=== PATIENT | female | born 1955 | race American Indian/Alaskan Native ===

== ENCOUNTER 2019-04-12 12:24 | Inpatient (IN) | payer SELFPAY ==
--- NOTE | 2019-04-12 12:34 | Event Note ---
ED Screening Note Date of service: 04/12/19 Time: 12:33 ED Screening Note: Pt complains of generalized abdominal pain and chest pain x 1 week This initial assessment/diagnostic orders/clinical plan/treatment(s) is/are subject to change based on patients health status, clinical progression and re- assessment by fellow clinical providers in the ED. Further treatment and workup at subsequent clinical providers discretion. Patient/guardian urged not to elope from the ED as their condition may be serious if not clinically assessed and managed. Initial orders include: MAIN labs EKG CXR
--- NOTE | 2019-04-12 13:29 | XRay Report ---
CHEST 2 VIEWS INDICATION / CLINICAL INFORMATION: chest pain. COMPARISON: None available. FINDINGS: SUPPORT DEVICES: None. HEART / MEDIASTINUM: No significant abnormality. LUNGS / PLEURA: No significant pulmonary or pleural abnormality. No pneumothorax. ADDITIONAL FINDINGS: Thoracic aorta is tortuous and minimally ectatic. IMPRESSION: 1. No acute findings. Signer Name: Michele Méndez MD Signed: 04/12/2019 1:25 PM Workstation Name: [id number]
[2019-04-12 13:43] LABS: Basophils # (Auto) 0.1 K/mm3 (0.0-0.1); Basophils % (Auto) 0.6 % (0.0-1.8); Hematocrit 45.5 % (30.3-42.9); Hemoglobin 15.6 gm/dl (10.1-14.3); Lymphocytes # (Auto) 1.7 K/mm3 (1.2-5.4); Lymphocytes % (Auto) 16.4 % (13.4-35.0); Mean Corpuscular HGB Conc 34 % (30-34); Mean Corpuscular Volume 86 fl (79-97); Monocytes # (Auto) 0.6 K/mm3 (0.0-0.8); Monocytes % (Auto) 5.8 % (0.0-7.3); Platelet Count 269 K/mm3 (140-440); Red Blood Count 5.27 M/mm3 (3.65-5.03); Red Cell Distribution Width 14.3 % (13.2-15.2)
[2019-04-12] MEDS ORDERED: MORPHINE 4 MG/1 ML INJ IV ONE ×3 (14:02→15:46)
[2019-04-12] MEDS ORDERED: ONDANSETRON 4 MG/2 ML INJ IV ONE (14:03)
[2019-04-12 14:18] LABS: Albumin 4.1 g/dL (3.9-5); Calcium 9.9 mg/dL (8.4-10.2)
[2019-04-12 14:46] LABS: Bacteria,Urine 1+ /HPF (Negative); Bilirubin,Urine NEG (Negative); Blood,Urine MOD (Negative); Color,Urine Yellow (Yellow); Mucus,Urine 2+ /HPF; Protein,Urine <15 mg/dL mg/dL (Negative); Urobilinogen,Urine < 2.0 mg/dL (<2.0)
--- NOTE | 2019-04-12 16:10 | Cat Scan Report ---
CT of the abdomen and pelvis with contrast INDICATION: Left lower quadrant pain x2 days COMPARISON: None FINDINGS: There is minimal basilar atelectasis. There is moderate fatty infiltration of the liver. Th ere is 2 cm, nodular peripherally enhancing lesion in the dome probably a hemangioma. One or 2 small hepatic cysts appear to be present as well. The spleen is unremarkable. Small low density renal lesio ns appear to be cysts. Low density nodularity of the adrenal glands appears benign. Right retrocrural low density is likely dilated lymphatic. There is good enhancement of the pancreatic parenchyma. How ever, there are moderate peripancreatic inflammatory changes involving the body and tail. The head is intact. No peripancreatic fluid collection. No pancreatic ductal dilation. No definite gallbladder o r biliary tree. No ascites or adenopathy. CT of the pelvis shows no evidence of bowel obstruction. Appendix is seen and is normal. Large calcif ied uterine fibroid is present. No pelvic fluid or adenopathy. No diverticulosis or diverticulitis. N o significant skeletal lesion. IMPRESSION: Moderate pancreatitis as described. No definite necrosis is seen. Automated exposure control was utilized to diminish radiation dose. Signer Name: Michele Méndez MD Signed: 04/12/2019 4:05 PM Workstation Name: [id number]
--- NOTE | 2019-04-12 17:52 | Emergency Department Report ---
ED Abdominal Pain HPI - General Chief Complaint: Chest Pain Stated Complaint: ABD/BACK/CHEST PAIN Time Seen by Provider: 04/12/19 12:30 Source: patient Mode of arrival: Ambulatory Limitations: No Limitations - History of Present Illness Initial Comments: Mrs. Champion is a very pleasant 67-year-old female with history of hypertension who presents with epigastric pain left lower quadrant and right lower quadrant pain. Pain began on Sunday. [place] like a stomach ache. Had constipation. She developed nausea and vomiting. SHe was unable to tolerate her blood pressure medicine this morning. No previous episode of pain. She is in relatively good health. She is followed at the urgent clinic in [facility] for her blood pressure medications. Only a social drinker. drinks less than one time per month. She does smoke cigarettes. She retired 6 months ago. She recently took [id number] medication for cold symptoms MD Complaint: abdominal pain -: Gradual Location: LLQ, RLQ, epigastric Severity: severe Severity scale (0 -10): 10 Quality: cramping, aching Consistency: constant Improves With: nothing Worsens With: nothing Associated Symptoms: nausea, vomiting - Related Data Allergies Allergy/AdvReac Type Severity Reaction Status Date / Time No Known Allergies Allergy Unverified 04/12/19 12:31 ED Review of Systems ROS: Stated complaint: ABD/BACK/CHEST PAIN Other details as noted in HPI Comment: All other systems reviewed and negative Constitutional: denies: fever, malaise Gastrointestinal: abdominal pain, nausea, vomiting ED Past Medical Hx - Past Medical History Previous Medical History?: Yes Hx Hypertension: Yes - Surgical History Past Surgical History?: Yes Additional Surgical History: right pinky toe amputated - Family History Family history: hypertension - Social History Smoking Status: Current Every Day Smoker Substance Use Type: None ED Physical Exam - General Limitations: No Limitations General appearance: alert, in no apparent distress, other (appears uncomfortable) - Head Head exam: Present: atraumatic, normocephalic - Eye Eye exam: Present: normal appearance - ENT ENT exam: Present: mucous membranes moist - Neck Neck exam: Present: normal inspection, full ROM - Respiratory Respiratory exam: Present: normal lung sounds bilaterally. Absent: respiratory distress, wheezes, rales, rhonchi - Cardiovascular Cardiovascular Exam: Present: regular rate, normal rhythm. Absent: systolic murmur, diastolic murmur, rubs, gallop - GI/Abdominal GI/Abdominal exam: Present: soft, tenderness (epigastric left lower quadrant tenderness), guarding, normal bowel sounds - Extremities Exam Extremities exam: Present: normal inspection - Neurological Exam Neurological exam: Present: alert, oriented X3 - Psychiatric Psychiatric exam: Present: normal affect, normal mood - Skin Skin exam: Present: warm, dry, intact, normal color. Absent: rash ED Course Vital Signs 04/12/19 04/12/19 04/12/19 12:31 14:30 15:15 Pulse Rate 90 95 H Respiratory 20 16 21 Rate Blood Pressure Blood Pressure 195/115 210/119 [Left] O2 Sat by Pulse 94 94 Oximetry 04/12/19 04/12/19 04/12/19 15:30 16:12 16:28 Pulse Rate 97 H 96 H 81 Respiratory 23 27 H Rate Blood Pressure 198/127 Blood Pressure 193/119 158/96 [Left] O2 Sat by Pulse 94 94 Oximetry 04/12/19 17:37 Pulse Rate 82 Respiratory 13 Rate Blood Pressure Blood Pressure 194/116 [Left] O2 Sat by Pulse 94 Oximetry ED Medical Decision Making - Lab Data Result diagrams: 04/12/19 12:52 04/12/19 12:52 Laboratory Results - last 24 hr 04/12/19 04/12/19 04/12/19 12:52 12:52 14:06 WBC 10.1 RBC 5.27 H Hgb 15.6 H Hct 45.5 H MCV 86 MCH 30 MCHC 34 RDW 14.3 Plt Count 269 Lymph % (Auto) 16.4 [place] % (Auto) 5.8 Eos % (Auto) 0.0 Baso % (Auto) 0.6 Lymph # 1.7 [place] # 0.6 Eos # 0.0 Baso # 0.1 Seg Neutrophils % 77.2 H Seg Neutrophils # 7.8 H Sodium 138 Potassium 4.0 Chloride 98.3 Carbon Dioxide 19 L Anion Gap 25 BUN 15 Creatinine 1.0 Estimated GFR 56 BUN/Creatinine Ratio 15 Glucose 150 H Calcium 9.9 Total Bilirubin 0.30 AST 19 ALT 18 Alkaline Phosphatase 64 Troponin T Total Protein 8.1 Albumin 4.1 Albumin/Globulin Ratio 1.0 Lipase 678 H Urine Color Yellow Urine Turbidity Clear Urine pH 6.0 Ur Specific [place] 1.017 Urine Protein <15 mg/dl Urine Glucose (UA) 50 Urine Ketones Neg Urine Blood Mod Urine Nitrite Neg Urine Bilirubin Neg Urine Urobilinogen < 2.0 Ur Leukocyte Esterase Neg Urine WBC (Auto) 13.0 H Urine RBC (Auto) 20.0 U Epithel Cells (Auto) 5.0 Urine Bacteria (Auto) 1+ Urine Mucus 2+ 04/12/19 16:31 WBC RBC Hgb Hct MCV MCH MCHC RDW Plt Count Lymph % (Auto) [place] % (Auto) Eos % (Auto) Baso % (Auto) Lymph # [place] # Eos # Baso # Seg Neutrophils % Seg Neutrophils # Sodium Potassium Chloride Carbon Dioxide Anion Gap BUN Creatinine Estimated GFR BUN/Creatinine Ratio Glucose Calcium Total Bilirubin AST ALT Alkaline Phosphatase Troponin T < 0.010 Total Protein Albumin Albumin/Globulin Ratio Lipase Urine Color Urine Turbidity Urine pH Ur Specific [place] Urine Protein Urine Glucose (UA) Urine Ketones Urine Blood Urine Nitrite Urine Bilirubin Urine Urobilinogen Ur Leukocyte Esterase Urine WBC (Auto) Urine RBC (Auto) U Epithel Cells (Auto) Urine Bacteria (Auto) Urine Mucus - EKG Data 04/12/19 17:51 EKG obtained 1242 Normal sinus rhythm at 80 beats a minute normal axis normal intervals and nonspecific ST-T wave pattern and no significant ST elevation positive LVH according to aVL criteria - Radiology Data Radiology results: report reviewed CT abdomen and pelvis revealed acute pancreatitis. Large uterine fibroid, hemangioma. Chest x-ray no acute findings: Torturous aorta according to radiologist report - Medical Decision Making 1. Acute pancreatitis: First episode for patient, Admitted to the hospital service for further treatment and evaluation. No history of excessive alcohol abuse. Only reported medication [id number] cold medication as well as lisinopril. Patient reports mild dyslipidemia in the past. 2. Hypertensive urgency: Addressed with IV labetalol. Critical care attestation.: If time is entered above; I have spent that time in minutes in the direct care of this critically ill patient, excluding procedure time. ED Disposition Clinical Impression: Acute pancreatitis, Hypertensive urgency Disposition: OP ADMIT IP TO THIS HOSP Is pt being admited?: Yes Does the pt Need Aspirin: No Condition: Stable
[2019-04-12] MEDS ORDERED: HYDROmorphone 1 MG/1 ML INJ IV ONE (17:54)
[2019-04-12] MEDS ORDERED: ACETAMINOPHEN 325 MG TAB PO PRN (18:19)
[2019-04-12] MEDS ORDERED: MORPHINE 2 MG/1 ML INJ IV PRN (18:19)
[2019-04-12] MEDS ORDERED: METOCLOPRAMIDE 10 MG/2 ML INJ IV PRN (18:19)
--- NOTE | 2019-04-12 18:27 | History and Physical Report ---
History of Present Illness Date of examination: 04/12/19 Date of admission: April 12, 2019 Chief complaint: Epigastric pain for 3 days History of present illness: 67-year-old female with history of hypertension presents with epigastric pain left lower quadrant and right lower quadrant pain. Pain began on Sunday04/07/2019 ---5 days ago.. [place] like a stomach ache. Had constipation. She developed nausea and vomiting. SHe was unable to tolerate her blood pressure medicine this morning. No previous episode of pain. She is in relatively good health. She is followed at the urgent clinic in [facility] for her blood pressure medications. Only a social drinker. drinks less than one time per month. She does smoke cigarettes.She retired 6 months ago. She recently took [id number] medication for cold symptoms MD Complaint: abdominal pain -: Gradual Location: LLQ, RLQ, epigastric Severity: severe Severity scale (0 -10): 10 Quality: cramping, aching Consistency: constant Improves With: nothing Worsens With: nothing Associated Symptoms: nausea, vomiting Past Medical History Previous Medical History?: Yes Hypertension: Yes Surgical History Past Surgical History?: Yes Additional Surgical History: right pinky toe amputated Family History Family history: hypertension Social History Smoking Status: Current Every Day Smoker Substance Use Type: None Review of Systems ROS: Stated complaint: ABD/BACK/CHEST PAIN Other details as noted in HPI Comment: All other systems reviewed and negative Constitutional: denies: fever, malaise Gastrointestinal: abdominal pain, nausea, vomiting Medications and Allergies Allergies Allergy/AdvReac Type Severity Reaction Status Date / Time No Known Allergies Allergy Unverified 04/12/19 12:31 Home Medications Medication Instructions Recorded Confirmed Last Taken Type Lisinopril 40 mg PO DAILY 04/13/19 04/13/19 04/10/19 History Active Meds: Active Medications Acetaminophen (Tylenol) 650 mg PO Q4H PRN PRN Reason: Pain MILD(1-3)/Fever >100.5/CRUZ Hydromorphone HCl (Dilaudid) 1 mg IV Q3H PRN PRN Reason: Pain , Severe (7-10) Dextrose/Sodium Chloride (D5ns) 1,000 mls @ 100 mls/hr IV DIRECT ADAMARIS Metoclopramide HCl (Reglan) 10 mg IV Q6H PRN PRN Reason: Nausea And Vomiting Morphine Sulfate (Morphine) 2 mg IV Q4H PRN PRN Reason: Pain, Moderate (4-6) Ondansetron HCl (Zofran) 4 mg IV Q3H PRN PRN Reason: Nausea And Vomiting Sodium Chloride (Sodium Chloride Flush Syringe 10 Ml) 10 ml IV BID ADAMARIS Sodium Chloride (Sodium Chloride Flush Syringe 10 Ml) 10 ml IV PRN PRN PRN Reason: LINE FLUSH Exam - Constitutional Vitals: Temp Pulse Resp BP Pulse Ox 80 13 189/118 94 04/12/19 18:03 04/12/19 17:37 04/12/19 18:03 04/12/19 17:37 General appearance: Present: no acute distress, well-nourished - EENT Eyes: Present: PERRL ENT: hearing intact, clear oral mucosa - Neck Neck: Present: supple, normal ROM - Respiratory Respiratory effort: normal Respiratory: bilateral: CTA - Cardiovascular Heart rate: 78 Rhythm: regular Heart Sounds: Present: S1 & S2. Absent: rub, click - Extremities Extremities: no ischemia, pulses intact, pulses symmetrical, No edema Peripheral Pulses: within normal limits - Abdominal General gastrointestinal: Present: soft, non-tender, non-distended, normal bowel sounds Localized gastrointestinal: tender: diffuse, guarding: diffuse Female genitourinary: Present: normal - Rectal Rectal Exam: deferred - Integumentary Integumentary: Present: clear, warm, dry - Musculoskeletal Musculoskeletal: gait normal, strength equal bilaterally - Psychiatric Psychiatric: appropriate mood/affect, intact judgment & insight - Neurologic Neurologic: CNII-XII intact, moves all extremities - Allied Health Allied health notes reviewed: nursing, case management Results - Labs CBC & Chem 7: 04/13/19 04:21 04/13/19 04:21 Labs: Laboratory Last Values WBC 10.1 K/mm3 (4.5-11.0) 04/12/19 12:52 RBC 5.27 M/mm3 (3.65-5.03) H 04/12/19 12:52 Hgb 15.6 gm/dl (10.1-14.3) H 04/12/19 12:52 Hct 45.5 % (30.3-42.9) H 04/12/19 12:52 MCV 86 fl (79-97) 04/12/19 12:52 MCH 30 pg (28-32) 04/12/19 12:52 MCHC 34 % (30-34) 04/12/19 12:52 RDW 14.3 % (13.2-15.2) 04/12/19 12:52 Plt Count 269 K/mm3 (140-440) 04/12/19 12:52 Lymph % (Auto) 16.4 % (13.4-35.0) 04/12/19 12:52 [place] % (Auto) 5.8 % (0.0-7.3) 04/12/19 12:52 Eos % (Auto) 0.0 % (0.0-4.3) 04/12/19 12:52 Baso % (Auto) 0.6 % (0.0-1.8) 04/12/19 12:52 Lymph # 1.7 K/mm3 (1.2-5.4) 04/12/19 12:52 [place] # 0.6 K/mm3 (0.0-0.8) 04/12/19 12:52 Eos # 0.0 K/mm3 (0.0-0.4) 04/12/19 12:52 Baso # 0.1 K/mm3 (0.0-0.1) 04/12/19 12:52 Seg Neutrophils % 77.2 % (40.0-70.0) H 04/12/19 12:52 Seg Neutrophils # 7.8 K/mm3 (1.8-7.7) H 04/12/19 12:52 Sodium 138 mmol/L (137-145) 04/12/19 12:52 Potassium 4.0 mmol/L (3.6-5.0) 04/12/19 12:52 Chloride 98.3 mmol/L (98-107) 04/12/19 12:52 Carbon Dioxide 19 mmol/L (22-30) L 04/12/19 12:52 Anion Gap 25 mmol/L 04/12/19 12:52 BUN 15 mg/dL (7-17) 04/12/19 12:52 Creatinine 1.0 mg/dL (0.7-1.2) 04/12/19 12:52 Estimated GFR 56 ml/min 04/12/19 12:52 BUN/Creatinine Ratio 15 % 04/12/19 12:52 Glucose 150 mg/dL (65-100) H 04/12/19 12:52 Calcium 9.9 mg/dL (8.4-10.2) 04/12/19 12:52 Total Bilirubin 0.30 mg/dL (0.1-1.2) 04/12/19 12:52 AST 19 units/L (5-40) 04/12/19 12:52 ALT 18 units/L (7-56) 04/12/19 12:52 Alkaline Phosphatase 64 units/L (35-129) 04/12/19 12:52 Troponin T < 0.010 ng/mL (0.00-0.029) 04/12/19 16:31 Total Protein 8.1 g/dL (6.3-8.2) 04/12/19 12:52 Albumin 4.1 g/dL (3.9-5) 04/12/19 12:52 Albumin/Globulin Ratio 1.0 % 04/12/19 12:52 Lipase 678 units/L (13-60) H 04/12/19 12:52 Urine Color Yellow (Yellow) 04/12/19 14:06 Urine Turbidity Clear (Clear) 04/12/19 14:06 Urine pH 6.0 (5.0-7.0) 04/12/19 14:06 Ur Specific [place] 1.017 (1.003-1.030) 04/12/19 14:06 Urine Protein <15 mg/dl mg/dL (Negative) 04/12/19 14:06 Urine Glucose (UA) 50 mg/dL (Negative) 04/12/19 14:06 Urine Ketones Neg mg/dL (Negative) 04/12/19 14:06 Urine Blood Mod (Negative) 04/12/19 14:06 Urine Nitrite Neg (Negative) 04/12/19 14:06 Urine Bilirubin Neg (Negative) 04/12/19 14:06 Urine Urobilinogen < 2.0 mg/dL (<2.0) 04/12/19 14:06 Ur Leukocyte Esterase Neg (Negative) 04/12/19 14:06 Urine WBC (Auto) 13.0 /HPF (0.0-6.0) H 04/12/19 14:06 Urine RBC (Auto) 20.0 /HPF (0.0-6.0) 04/12/19 14:06 U Epithel Cells (Auto) 5.0 /HPF (0-13.0) 04/12/19 14:06 Urine Bacteria (Auto) 1+ /HPF (Negative) 04/12/19 14:06 Urine Mucus 2+ /HPF 04/12/19 14:06 Short CBC 04/12/19 04/13/19 Range/Units 12:52 04:21 WBC 10.1 14.4 H (4.5-11.0) K/mm3 Hgb 15.6 H 14.1 (10.1-14.3) gm/dl Hct 45.5 H 42.7 (30.3-42.9) % Plt Count 269 218 (140-440) K/mm3 BMP 04/12/19 04/13/19 12:52 04:21 Sodium 138 140 Potassium 4.0 4.5 Chloride 98.3 100.8 Carbon Dioxide 19 L 27 D BUN 15 20 H Creatinine 1.0 1.2 Glucose 150 H 121 H Calcium 9.9 9.0 Cardiac Enzymes 04/12/19 Range/Units 16:31 Troponin T < 0.010 (0.00-0.029) ng/mL Liver Function 04/12/19 04/13/19 Range/Units 12:52 04:21 Total Bilirubin 0.30 0.50 (0.1-1.2) mg/dL AST 19 18 (5-40) units/L ALT 18 14 (7-56) units/L Alkaline Phosphatase 64 54 (35-129) units/L Albumin 4.1 3.8 L (3.9-5) g/dL Urine 04/12/19 Range/Units 14:06 Urine Color Yellow (Yellow) Urine pH 6.0 (5.0-7.0) Ur Specific [place] 1.017 (1.003-1.030) Urine Protein <15 mg/dl (Negative) mg/dL Urine Glucose (UA) 50 (Negative) mg/dL - Imaging and Cardiology Chest x-ray: report reviewed (NAF) CT scan - abdomen: report reviewed Imaging and Cardiology: CT Abdomen There is good enhancement of the pancreatic parenchyma. However, there are moderate peripancreatic inflammatory changes involving the body and tail. The head is intact. No peripancreatic fluid collection. No pancreatic ductal dilation. No definite gallbladder or biliary tree. No ascites or adenopathy. CT of the pelvis shows no evidence of bowel obstruction. Appendix is seen and is normal. Large calcified uterine fibroid is present. No pelvic fluid or adenopath y. No diverticulosis or diverticulitis. No significant skeletal lesion. IMPRESSION: Moderate pancreatitis as described. No definite necrosis is seen. Automated exposure control was utilized to diminish radiation dose. Assessment and Plan Advance Directives: Yes (Full code) VTE prophylaxis?: Chemical Plan of care discussed with patient/family: Yes - Patient Problems (1) Acute pancreatitis Current Visit: Yes Status: Acute Qualifiers: Pancreatitis type: idiopathic Plan to address problem: We will keep the patient n.p.o. IV fluids for now--D5W at 100 cc/h Check amylase and lipase in the morning Pain control with IV Dilaudid (2) Hypertension Current Visit: Yes Status: Chronic Qualifiers: Hypertension type: essential hypertension Qualified Code(s): I10 - Essential (primary) hypertension Plan to address problem: Patient initiated on Catapres patch (3) DVT prophylaxis Current Visit: Yes Status: Acute Plan to address problem: On Heparin and GI prophylaxis
[2019-04-12] MEDS: D5W/0.9% NACL 1,000 ML IV SCH (22:42)
[2019-04-12] MEDS: HYDROmorphone 1 MG/1 ML INJ IV PRN (23:56)
[2019-04-12] MEDS: ONDANSETRON 4 MG/2 ML INJ IV PRN (23:56)
[2019-04-13] MEDS ORDERED: hydrALAZINE 20 MG/1 ML INJ IV PRN (00:44)
[2019-04-13 04:58] LABS: Basophils % (Auto) 0.2 % (0.0-1.8); Hematocrit 42.7 % (30.3-42.9); Hemoglobin 14.1 gm/dl (10.1-14.3); Lymphocytes # (Auto) 1.1 K/mm3 (1.2-5.4); Lymphocytes % (Auto) 7.9 % (13.4-35.0); Mean Corpuscular HGB Conc 33 % (30-34); Mean Corpuscular Volume 87 fl (79-97); Monocytes # (Auto) 0.9 K/mm3 (0.0-0.8); Monocytes % (Auto) 6.5 % (0.0-7.3); Red Blood Count 4.92 M/mm3 (3.65-5.03); Red Cell Distribution Width 14.4 % (13.2-15.2)
[2019-04-13 05:09] LABS: Platelet Count 218 K/mm3 (140-440)
[2019-04-13 05:19] LABS: Albumin 3.8 g/dL (3.9-5)
[2019-04-13] MEDS: PANTOPRAZOLE 40 MG INJ IV SCH ×2 (09:02→21:38)
[2019-04-13] MEDS: HYDROmorphone 1 MG/1 ML INJ IV PRN ×2 (09:02→21:39)
[2019-04-13] MEDS: D5W/0.9% NACL 1,000 ML IV SCH ×2 (09:03→17:42)
[2019-04-13] MEDS ORDERED: HEPARIN 5,000 UNIT/1 ML VIAL SUB-Q SCH (10:00)
--- NOTE | 2019-04-13 13:54 | Progress Note ---
Assessment and Plan Assessment and plan: 67-year-old woman with a history of hypertension who presents with abdominal pain. Also complained of nausea vomiting. Acute pancreatitis Denies heavy alcohol use,. No stone seen in the gallbladder on CT, will therefore obtain ultrasound of right upper quadrant. Pain medications, IV fluids, trial of clear liquid diet Sirs; no evidence of infection, without organ damage Tobacco abuse/dependence Smoking cessation counseling performed for 10 minutes, nicotine patches when necessary Hypertension Optimize BP meds , on labetalol IV as needed for now DVT prophylaxis; Lovenox History Interval history: Review of systems Constitutional: No fevers, no malaise, no joint pains CVS: No chest pain, no orthopnea, no pedal edema GI: No abdominal pain, no diarrhea, no vomiting, no constipation Respiratory: , no wheezing, no coughing Hospitalist Physical - Physical exam Narrative exam: General.: Appears well, no distress, nontoxic HEENT: Moist mucous membranes, extraocular muscles intact, no lymphadenopathy Neck: supple Cardiac: S1-S2 heard Lungs: clear to auscultation bilaterally Abdomen: soft , nontender, nondistended, bowel sounds positive Extremities: no edema clubbing or cyanosis Skin: no rash or lesions Neurologic: no gross focal deficits Psych: calm, and cooperative - Constitutional Vitals: Temp Pulse Resp BP Pulse Ox 98.5 F 95 H 18 148/84 87 04/13/19 12:32 04/13/19 12:32 04/13/19 12:32 04/13/19 12:32 04/13/19 12:32 General appearance: Present: no acute distress, well-nourished Results - Labs CBC & Chem 7: 04/13/19 04:21 04/13/19 04:21 Labs: Laboratory Last Values WBC 14.4 K/mm3 (4.5-11.0) H 04/13/19 04:21 RBC 4.92 M/mm3 (3.65-5.03) 04/13/19 04:21 Hgb 14.1 gm/dl (10.1-14.3) 04/13/19 04:21 Hct 42.7 % (30.3-42.9) 04/13/19 04:21 MCV 87 fl (79-97) 04/13/19 04:21 MCH 29 pg (28-32) 04/13/19 04:21 MCHC 33 % (30-34) 04/13/19 04:21 RDW 14.4 % (13.2-15.2) 04/13/19 04:21 Plt Count 218 K/mm3 (140-440) 04/13/19 04:21 Lymph % (Auto) 7.9 % (13.4-35.0) L 04/13/19 04:21 [place] % (Auto) 6.5 % (0.0-7.3) 04/13/19 04:21 Eos % (Auto) 0.0 % (0.0-4.3) 04/13/19 04:21 Baso % (Auto) 0.2 % (0.0-1.8) 04/13/19 04:21 Lymph # 1.1 K/mm3 (1.2-5.4) L 04/13/19 04:21 [place] # 0.9 K/mm3 (0.0-0.8) H 04/13/19 04:21 Eos # 0.0 K/mm3 (0.0-0.4) 04/13/19 04:21 Baso # 0.0 K/mm3 (0.0-0.1) 04/13/19 04:21 Seg Neutrophils % 85.4 % (40.0-70.0) H 04/13/19 04:21 Seg Neutrophils # 12.3 K/mm3 (1.8-7.7) H 04/13/19 04:21 Sodium 140 mmol/L (137-145) 04/13/19 04:21 Potassium 4.5 mmol/L (3.6-5.0) 04/13/19 04:21 Chloride 100.8 mmol/L (98-107) 04/13/19 04:21 Carbon Dioxide 27 mmol/L (22-30) D 04/13/19 04:21 Anion Gap 17 mmol/L 04/13/19 04:21 BUN 20 mg/dL (7-17) H 04/13/19 04:21 Creatinine 1.2 mg/dL (0.7-1.2) 04/13/19 04:21 Estimated GFR 55 ml/min 04/13/19 04:21 BUN/Creatinine Ratio 17 % 04/13/19 04:21 Glucose 121 mg/dL (65-100) H 04/13/19 04:21 Hemoglobin A1c 5.9 % (4-6) 04/13/19 04:21 Calcium 9.0 mg/dL (8.4-10.2) 04/13/19 04:21 Total Bilirubin 0.50 mg/dL (0.1-1.2) 04/13/19 04:21 AST 18 units/L (5-40) 04/13/19 04:21 ALT 14 units/L (7-56) 04/13/19 04:21 Alkaline Phosphatase 54 units/L (35-129) 04/13/19 04:21 Troponin T < 0.010 ng/mL (0.00-0.029) 04/12/19 16:31 Total Protein 7.1 g/dL (6.3-8.2) 04/13/19 04:21 Albumin 3.8 g/dL (3.9-5) L 04/13/19 04:21 Albumin/Globulin Ratio 1.2 % 04/13/19 04:21 Amylase 589 units/L (27-131) H 04/13/19 04:21 Lipase 255 units/L (13-60) H 04/13/19 04:21 Urine Color Yellow (Yellow) 04/12/19 14:06 Urine Turbidity Clear (Clear) 04/12/19 14:06 Urine pH 6.0 (5.0-7.0) 04/12/19 14:06 Ur Specific [place] 1.017 (1.003-1.030) 04/12/19 14:06 Urine Protein <15 mg/dl mg/dL (Negative) 04/12/19 14:06 Urine Glucose (UA) 50 mg/dL (Negative) 04/12/19 14:06 Urine Ketones Neg mg/dL (Negative) 04/12/19 14:06 Urine Blood Mod (Negative) 04/12/19 14:06 Urine Nitrite Neg (Negative) 04/12/19 14:06 Urine Bilirubin Neg (Negative) 04/12/19 14:06 Urine Urobilinogen < 2.0 mg/dL (<2.0) 04/12/19 14:06 Ur Leukocyte Esterase Neg (Negative) 04/12/19 14:06 Urine WBC (Auto) 13.0 /HPF (0.0-6.0) H 04/12/19 14:06 Urine RBC (Auto) 20.0 /HPF (0.0-6.0) 04/12/19 14:06 U Epithel Cells (Auto) 5.0 /HPF (0-13.0) 04/12/19 14:06 Urine Bacteria (Auto) 1+ /HPF (Negative) 04/12/19 14:06 Urine Mucus 2+ /HPF 04/12/19 14:06 Active Medications - Current Medications Current Medications: Generic Name Dose Route Start Last Admin Trade Name Freq PRN Reason Stop Dose Admin Acetaminophen 650 mg 04/12/19 18:19 Tylenol PO Q4H PRN Pain MILD(1-3)/Fever >100.5/CRUZ Hydralazine HCl 10 mg 04/13/19 00:44 Apresoline IV Q4HR PRN Blood Pressure Hydromorphone HCl 1 mg 04/12/19 18:19 04/13/19 09:02 Dilaudid IV 1 mg Q3H PRN Administration Pain , Severe (7-10) Dextrose/Sodium Chloride 1,000 mls @ 100 mls/hr 04/12/19 19:00 04/13/19 09:03 D5ns IV 100 mls/hr DIRECT ADAMARIS Administration Metoclopramide HCl 10 mg 04/12/19 18:19 Reglan IV Q6H PRN Nausea And Vomiting Morphine Sulfate 2 mg 04/12/19 18: Morphine IV Q4H PRN Pain, Moderate (4-6) Ondansetron HCl 4 mg 04/12/19 18:19 04/12/19 23:56 Zofran IV 4 mg Q3H PRN Administration Nausea And Vomiting Pantoprazole Sodium 40 mg 04/13/19 10:00 04/13/19 09:02 Protonix IV 40 mg BID ADAMARIS Administration Sodium Chloride 10 ml 04/12/19 22:00 04/13/19 13:47 Sodium Chloride Flush Syringe 10 Ml IV 10 ml BID ADAMARIS Administration Sodium Chloride 10 ml 04/12/19 18: Sodium Chloride Flush Syringe 10 Ml IV PRN PRN LINE FLUSH
[2019-04-13] MEDS: NICOTINE 14 MG/24 HR PATCH TD SCH (17:39)
[2019-04-13] MEDS: ONDANSETRON 4 MG/2 ML INJ IV PRN (21:39)
[2019-04-13] MEDS: ENOXAPARIN 40 MG/0.4 ML INJ SUB-Q SCH (21:39)
--- NOTE | 2019-04-13 23:05 | Ultrasound Report ---
ULTRASOUND ABDOMEN, LIMITED (RIGHT UPPER QUADRANT) INDICATION: pancreatitis, suspect gallstone. COMPARISON: None available. FINDINGS: Pancreas: Visualized portion shows no significant abnormality. Liver: Normal. Gallbladder: Normal. Bile ducts: Normal. Common Bile Duct measures 1 mm. Free fluid: None. Additional Findings: Proximal abdominal aorta is ectatic measuring 2.9 cm. IMPRESSION: 1. No acute findings. 2. Proximal abdominal aorta is ectatic measuring 2.9 cm. Signer Name: Stewart Estrella MD Signed: 04/13/2019 11:00 PM Workstation Name: [id number]
[2019-04-14] MEDS: D5W/0.9% NACL 1,000 ML IV SCH ×2 (06:29→17:16)
[2019-04-14] MEDS: ONDANSETRON 4 MG/2 ML INJ IV PRN ×2 (06:33→10:53)
[2019-04-14] MEDS: HYDROmorphone 1 MG/1 ML INJ IV PRN ×4 (06:33→23:26)
--- NOTE | 2019-04-14 08:53 | Gastroenterology Consultation ---
History of Present Illness - Reason for Consult Consult date: 04/14/19 pancreatitis Requesting physician: NICOL LAMAR - History of Present Illness 67-year-old female with history of hypertension presented to the hospital with approximately 1 week of upper abdominal pain. She felt that it was severe, intermittent, no specific alleviating or exacerbating factors, radiated to the lower belly and around the left flank to the back, associated with nausea and vomiting. Sharp in quality. Gradually improving. She reports no new home medications, denies any significant alcohol use, she does report using cigarettes for the last 40 years. She reports a sibling and her mother both with a history of cancer though she is not sure what type of cancer either one has had Past Medical History Previous Medical History?: Yes Hypertension: Yes Surgical History Past Surgical History?: Yes Additional Surgical History: right pinky toe amputated Family History Family history: hypertension Social History Smoking Status: Current Every Day Smoker Substance Use Type: None Home medications reviewed updated and documented Medications and Allergies Allergies Allergy/AdvReac Type Severity Reaction Status Date / Time No Known Allergies Allergy Unverified 04/12/19 12:31 Home Medications Medication Instructions Recorded Confirmed Last Taken Type Lisinopril 40 mg PO DAILY 04/13/19 04/13/19 04/10/19 History Active Meds: Active Medications Acetaminophen (Tylenol) 650 mg PO Q4H PRN PRN Reason: Pain MILD(1-3)/Fever >100.5/RCUZ Enoxaparin Sodium (Enoxaparin) 40 mg SUB-Q QDAY@2200 [facility] Last Admin: 04/13/19 21:39 Dose: 40 mg Documented by: Hydralazine HCl (Apresoline) 10 mg IV Q4HR PRN PRN Reason: Blood Pressure Hydromorphone HCl (Dilaudid) 1 mg IV Q3H PRN PRN Reason: Pain , Severe (7-10) Last Admin: 04/14/19 06:33 Dose: 1 mg Documented by: Dextrose/Sodium Chloride (D5ns) 1,000 mls @ 100 mls/hr IV DIRECT ADAMARIS Last Admin: 04/14/19 06:29 Dose: 100 mls/hr Documented by: Piperacillin Sod/Tazobactam Sod (Zosyn/Ns 4.5gm/100ml) 4.5 gm in 100 mls @ 200 mls/hr IV Q8HR [facility]; Protocol Metoclopramide HCl (Reglan) 10 mg IV Q6H PRN PRN Reason: Nausea And Vomiting Morphine Sulfate (Morphine) 2 mg IV Q4H PRN PRN Reason: Pain, Moderate (4-6) Nicotine (Habitrol) 14 mg TD QDAY [facility] Last Admin: 04/13/19 17:39 Dose: 14 mg Documented by: Ondansetron HCl (Zofran) 4 mg IV Q3H PRN PRN Reason: Nausea And Vomiting Last Admin: 04/14/19 06:33 Dose: 4 mg Documented by: Pantoprazole Sodium (Protonix) 40 mg IV BID [facility] Last Admin: 04/13/19 21:38 Dose: 40 mg Documented by: Sodium Chloride (Sodium Chloride Flush Syringe 10 Ml) 10 ml IV BID [facility] Last Admin: 04/13/19 21:40 Dose: 10 ml Documented by: Sodium Chloride (Sodium Chloride Flush Syringe 10 Ml) 10 ml IV PRN PRN PRN Reason: LINE FLUSH Review of Systems - Review of Systems All systems: negative (10 systems reviewed and negative except as mentioned above in the history of present illness) Exam - Constitutional Vital Signs: Temp Pulse Resp BP Pulse Ox 99.0 F 93 H 17 165/93 94 04/14/19 06:17 04/14/19 06:17 04/14/19 06:33 04/14/19 06:17 04/14/19 06:17 General appearance: no acute distress - EENT ENT: hearing intact - Neck Neck: supple - Respiratory Respiratory effort: normal - Cardiovascular Rhythm: regular - Gastrointestinal General gastrointestinal: Present: soft, tender - Integumentary Integumentary: Present: dry - Neurologic Neurological: alert and oriented x3 - Psychiatric Psychiatric: appropriate mood/affect - Labs CBC & Chem 7: 04/13/19 04:21 04/13/19 04:21 Assessment and Plan Advance diet as tolerated, patient will likely be able to be discharged within the next 24 hours from GI standpoint as she is tolerating diet and her pain is starting to improve and be controlled Regarding the underlying etiology of the pancreatitis, it is unclear as she is not a drinker, no evidence for gallstones on imaging and she denies history of new medications. Of note, she did mention to the admitting physician that she took some [id number] cough and cold medicine recently, so medication related is one potential etiology. I ordered lipid panel for the morning. Rest differential includes hypercalcemia but calcium is normal, autoimmune, underlying mass, etc. Therefore, given she is improving we will have her follow up with me as an outpatient in approximately 4 weeks and at that time I'll order repeat imaging of the pancreas was edematous has resolved to ensure no underlying lesions Additionally, she is overdue for a screening colonoscopy, can be arranged at the same time - Patient Problems (1) Acute pancreatitis Current Visit: Yes Status: Acute Qualifiers: Pancreatitis type: idiopathic
--- NOTE | 2019-04-14 09:48 | XRay Report ---
CHEST 2 VIEWS INDICATION / CLINICAL INFORMATION: fever. COMPARISON: 04/12/2019 FINDINGS: SUPPORT DEVICES: None. HEART / MEDIASTINUM: Heart size is normal. The thoracic aorta is tortuous. LUNGS / PLEURA: No acute interstitial or airspace pulmonary disease. A small left pleural effusion has developed. No pneumothorax. ADDITIONAL FINDINGS: No significant additional findings. IMPRESSION: 1. Small left pleural effusion. Signer Name: Kalia Jalloh MD Signed: 04/14/2019 9:44 AM Workstation Name: [id number]
[2019-04-14] MEDS: PANTOPRAZOLE 40 MG INJ IV SCH ×2 (10:52→22:21)
[2019-04-14] MEDS: NICOTINE 14 MG/24 HR PATCH TD SCH (10:53)
[2019-04-14] MEDS: PIPERACIL/TAZOBACTA 4.5/NS 100 4.5 GM/100 ML VIAL IV SCH ×2 (17:16→23:22)
[2019-04-14] MEDS: ENOXAPARIN 40 MG/0.4 ML INJ SUB-Q SCH (22:21)
[2019-04-15] MEDS: PIPERACIL/TAZOBACTA 4.5/NS 100 4.5 GM/100 ML VIAL IV SCH ×2 (06:00→15:17)
--- NOTE | 2019-04-15 10:09 | Discharge Summary ---
Providers - Providers Date of Admission: 04/12/19 17:54 Attending physician: NICOL LAMAR MD 04/14/19 07:59 Consult to Physician [CONS] Routine Comment: Consulting Provider: CLARI FRITZ Physician Instructions: Reason For Exam: pancreatitis Primary care physician: LOCKSTITCH HEMMER Hospitalization Condition: Stable Hospital course: 67-year-old woman with a history of hypertension who presents with abdominal pain. Also complained of nausea vomiting. Acute pancreatitis/sirs Denies heavy alcohol use,. No stone seen in the gallbladder on CT,RUQ sono neg for stones , LFTS wnl Pain medications, IV fluids, repeat CT A/p no changes, no abscess etiology likely meds , she took some otc meds for cough and cold before it started -home w pain meds, abx and antiemetics Preventative health counseling performed for 17 minutes Sirs; no evidence of infection, without organ damage Tobacco abuse/dependence Smoking cessation counseling performed for 10 minutes, nicotine patches when necessary Hypertensive urgency meds optimized DVT prophylaxis; Lovenox Disposition: TO HOME OR SELFCARE Time spent for discharge: 33 mins Core Measure Documentation - Palliative Care Palliative Care/ Comfort Measures: Not Applicable - Core Measures Any of the following diagnoses?: none Exam - Constitutional Vitals: Temp Pulse Resp BP Pulse Ox 99.2 F 89 20 161/98 89 04/14/19 22:23 04/14/19 22:23 04/14/19 22:23 04/14/19 22:23 04/14/19 22:23 General appearance: Present: no acute distress, well-nourished - EENT Eyes: Present: PERRL ENT: hearing intact, clear oral mucosa - Neck Neck: Present: supple, normal ROM - Respiratory Respiratory effort: normal Respiratory: bilateral: CTA - Cardiovascular Heart Sounds: Present: S1 & S2. Absent: rub, click - Extremities Extremities: pulses symmetrical, No edema Peripheral Pulses: within normal limits - Abdominal General gastrointestinal: Present: soft, non-tender, non-distended, normal bowel sounds Female genitourinary: Present: normal - Integumentary Integumentary: Present: clear, warm, dry - Musculoskeletal Musculoskeletal: gait normal, strength equal bilaterally - Psychiatric Psychiatric: appropriate mood/affect, intact judgment & insight - Neurologic Neurologic: CNII-XII intact, moves all extremities Plan Follow up with: PRIMARY CARE, [Primary Care Provider] - 7 Days Prescriptions: Amoxicillin/Potassium Clav [Augmentin 875-125 Tablet] 1 each PO BID #14 tablet Nicotine [Habitrol] 14 mg TD QDAY #30 patch hydroCHLOROthiazide [HCTZ] 25 mg PO QDAY #30 tablet oxyCODONE /ACETAMINOPHEN [Percocet 5/325] 1 tab PO Q6HR PRN #14 tablet PRN Reason: Pain lisinopriL [Zestril TAB] 40 mg PO QDAY #30 tablet Ondansetron [Zofran ODT TAB] 8 mg PO Q8HR PRN #30 tab.rapdis PRN Reason: Nausea
[2019-04-15] MEDS ORDERED: NON-FORMULARY EACH (Lisinopril 40 MG) PO SCH (10:15)
[2019-04-15] MEDS ORDERED: LISINOPRIL 40 MG TAB PO SCH (10:30)
[2019-04-15] MEDS: PANTOPRAZOLE 40 MG INJ IV SCH (11:06)
[2019-04-15] MEDS: NICOTINE 14 MG/24 HR PATCH TD SCH (11:07)
[2019-04-15 12:24] LABS: Chol/HDL Ratio 3.3 %
--- NOTE | 2019-04-15 13:00 | Gastroenterology Progress Note ---
<DANIELLE HARTMANN - Last Filed: 04/15/19 13:09> Assessment and Plan 1.acute pancreatitis -temp 99.2 -WBC 14.4 -H/H WNL -LFTs WNL -lipase 255-trending down -triglycerides WNL -etiology unclear- possibly medication related vs other (No ETOH, no gallstones on imaging) -clinically, patient reports feeling better with abd pain improved. No N/V. Tolerating full liquids. -repeat abd CT pending for today given fever -advance diet to GI soft -continue PPI and supportive care (trend labs, pain control, antiemtics, etc.) -colon screening as outpatient -if CT scan negative and tolerates advanced diet, okay to be d/c per GI standpoint with f/u in clinic for further management/workup Subjective Date of service: 04/15/19 Principal diagnosis: pancreatitis Interval history: No acute distress. Reports feeling better with abd pain improved. No N/V. Tolerating full liquids. Objective - Constitutional Vitals: Temp Pulse Resp BP Pulse Ox 99.2 F 77 20 161/94 89 04/14/19 22:23 04/15/19 11:06 04/14/19 22:23 04/15/19 11:06 04/14/19 22:23 General appearance: no acute distress - EENT Eyes: PERRL, EOM intact ENT: hearing intact - Respiratory Respiratory effort: normal - Cardiovascular Rhythm: regular - Gastrointestinal General gastrointestinal: Present: soft, tender (slight), non-distended, normal bowel sounds - Integumentary Integumentary: Present: warm, dry - Neurologic Neurological: alert and oriented x3 - Labs CBC & Chem 7: 04/13/19 04:21 04/13/19 04:21 Labs: Laboratory Results - last 24 hr 04/15/19 05:00 Triglycerides 94 Cholesterol 142 LDL Cholesterol Direct 91 HDL Cholesterol 43 Cholesterol/HDL Ratio 3.30 <CHANDRAKANT ZIEGLER - Last Filed: 04/15/19 14:47> Assessment and Plan I have reviewed the advanced practitioner's evaluation, assessment, and plan, and agree with the assessment and plan. I note the following notes/additions: patient clinically improving, from GI standpoint ok for discharge with outpatient followup; no clinic evidence for infected necrotizing pancreatitis on exam - Patient Problems (1) Acute pancreatitis Current Visit: Yes Status: Acute Qualifiers: Pancreatitis type: idiopathic Objective - Constitutional Vitals: Temp Pulse Resp BP Pulse Ox 99.2 F 77 20 161/94 89 04/14/19 22:23 04/15/19 11:06 04/14/19 22:23 04/15/19 11:06 04/14/19 22:23 - Labs CBC & Chem 7: 04/13/19 04:21 04/13/19 04:21 Labs: Laboratory Results - last 24 hr 04/15/19 05:00 Triglycerides 94 Cholesterol 142 LDL Cholesterol Direct 91 HDL Cholesterol 43 Cholesterol/HDL Ratio 3.30
--- NOTE | 2019-04-15 15:17 | Cat Scan Report ---
CT ABDOMEN AND PELVIS WITH CONTRAST INDICATION / CLINICAL INFORMATION: fup, pancreatitis, fever. TECHNIQUE: Axial CT images were obtained through the abdomen and pelvis after the cc Omnipaque 300 milligrams pe rcent IV contrast. All CT scans at this location are performed using CT dose reduction for ALARA by means of automated exposure control. COMPARISON: 04/12/2019 FINDINGS: LOWER CHEST: Interval development patchy airspace changes both lower lobes with a small left pleural effusion-sympathetic effusion. Probable chronic retrocrural lymph node on the right measuring 1.5 cm LIVER: Probable cavernous hemangioma dome of the liver unchanged from previous exam GALLBLADDER: No significant abnormality. BILE DUCTS: No significant abnormality. PANCREAS: Persistent inflammatory changes are present surrounding the pancreas slightly more prominen t than on previous exam without evidence of a pseudocyst SPLEEN: No significant abnormality. ADRENALS: No significant abnormality. RIGHT KIDNEY and URETER: Several small right renal cyst are present. LEFT KIDNEY and URETER: No significant abnormality. STOMACH and SMALL BOWEL: No significant abnormality. COLON: No significant abnormality. APPENDIX: No significant abnormality. PERITONEUM: No free fluid. No free air. No fluid collection. LYMPH NODES: No significant adenopathy. AORTA and ARTERIES: No significant abnormality. IVC and VEINS: No significant abnormality. URINARY BLADDER: No significant abnormality. REPRODUCTIVE ORGANS: Uterine enlargement with a calcified uterine fibroid ADDITIONAL FINDINGS: None. SKELETAL SYSTEM: No significant abnormality. IMPRESSION: 1. Persistent changes of pancreatitis, slightly increased as compared to previous exam 2. 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 Cavernous hemangioma within the liver 4. Calcified uterine fibroid 5. Progressive pulmonary changes with a left pleural effusion Signer Name: Clifford Bird MD Signed: 04/15/2019 3:12 PM Workstation Name: [id number]
[2019-04-15] MEDS ORDERED: PANTOPRAZOLE 40 MG TAB PO SCH (22:00)
[2019-04-15 22:51] VITALS: BP 130/74
== END 2019-04-15 19:45 | disposition home or self-care (01) | DRG 439 ==
LOC: ED 12:24 → 3A 17:54
PROVIDERS: ADMIT Internal Medicine; ATTEND Internal Medicine
DX: K85.00 Idiopathic acute pancreatitis without necrosis or infection (principal); R65.10 Systemic inflammatory response syndrome (SIRS) of non-infectious origin without acute organ dysfunction; I16.0 Hypertensive urgency; I10 Essential (primary) hypertension; F17.210 Nicotine dependence, cigarettes, uncomplicated
CPT/HCPCS: 36415; 71046; 74177; 76705; 80053; 80061; 81001; 82150; 83036; 83690; 84484; 85025; 87040; 87086; 87400; 93005; 93010; 96374; 96375; 96376; 99406; G0378; C9113; J0360; J1170; J1644; J1650; J2270; J2405; J2543; J7042; Q9967